=== PATIENT | male | born 1965 | race Two or more races ===

== ENCOUNTER 2016-04-25 17:44 | Emergency (ER) | payer BC, OTHER ==
[~2016-04-25] VITALS: Ht 167.6 cm; Wt 99.8 kg
[2016-04-25 19:05] LABS: Basophils # (auto) 0 uL; Basophils % (auto) 0.4 % (0.0-2.0); Eosinophils # (auto) 0.2 uL; Eosinophils % (auto) 1.7 % (0.0-7.0); Hematocrit 44.1 % (41.0-53.0); Hemoglobin 14.5 g/dL (13.5-17.5); Lymphocytes # (auto) 1.7 uL; Lymphocytes % (auto) 17.6 % (10.0-50.0); Mean Corpuscular Hemoglobin 29.6 pg (28.0-32.0); Mean Corpuscular Hgb Conc. 32.8 g/dL (32.0-36.0); Mean Corpuscular Volume 90.4 fL (80.0-100.0); Mean Platelet Volume 8.1 fL (7.4-10.4); Monocytes % (auto) 9.8 % (0.0-12.0); Neutrophils # (auto) 6.9 uL; Neutrophils % (auto) 70.5 % (37.0-80.0); Platelet Count (auto) 360 10^3/uL (140-450); Red Cell Distribution Width 14.1 % (11.6-16.0); White Blood Cell 9.8 10^3/uL (4.4-10.8)
[2016-04-25 19:28] LABS: Albumin 3.7 g/dL (3.4-5.0); BUN/Creatinine Ratio 10.9; Bilirubin, Total 0.5 mg/dL (0.2-1.0); Calcium 8.8 mg/dL (8.5-10.1); Potassium 4.2 mmol/L (3.5-5.1); Total Protein 7.5 g/dL (6.4-8.2)
[2016-04-25] MEDS ORDERED: MORPHINE SULFATE 4 MG/ML SYRG IV ONE (21:45)
[2016-04-25] MEDS ORDERED: ONDANSETRON HCL 4 MG/2 ML VIAL IV ONE (21:45)
[2016-04-25 21:54] LABS: Urine RBC None Seen /hpf (0 - 3)
[2016-04-25 22:02] LABS: INR 0.97 (0.9-1.15); Partial Thromboplastin Time 27.3 sec (22.64-33.71)
[2016-04-25 22:33] LABS: Urine Bilirubin Negative (Negative); Urine Blood Negative /uL (Negative); Urine Color Yellow (Yellow); Urine Glucose Normal (Normal); Urine Ketone Negative (Negative); Urine Mucus FEW (None Seen); Urine Nitrite Negative (Negative); Urine Urobilinogen Normal (Negative); Urine pH 5.5 (5.0-8.0)
[2016-04-26 02:50] VITALS: BP 114/67
== END 2016-04-26 03:24 | disposition short-term general hospital (02) ==
LOC: ER 17:59
DX: R07.89 Other chest pain (principal); E11.9 Type 2 diabetes mellitus without complications; E78.5 Hyperlipidemia, unspecified
CPT/HCPCS: 36415; 71020; 76705; 80053; 81001; 83690; 84484; 85025; 85049; 85610; 85730; 93005; 94761; 96374; 96375; 99285; J2270; J2405